=== PATIENT | male | born 1985 | race Caucasian/White ===

== ENCOUNTER 2016-11-02 19:11 | Emergency (ER) | payer OTHER ==
[2016-11-02 19:58] VITALS: BP 126/70
[2016-11-02] MEDS ORDERED: Tetan/Diph/Pertus SYR(Tdap)* 0.5 ML SYR(BOOSTRIX) use SYR IM ONE (20:42)
--- NOTE | 2016-11-02 20:52 | UC ---
Laceration HPI - HPI Summary HPI Summary: This is an otherwise healthy 30 yo gentleman who presented after sustaining a laceration to his L index finger. Injury occurred ~1 hr prior to evaluation. He was camping with his family and was using a knife. He lacerated the end of his L index finger. Last tetanus 2012. No associated weakness or numbness in the finger. - History Of Current Complaint Chief Complaint: UCLaceration Stated Complaint: LEFT INDEX FINGER LAC Time Seen by Provider: 11/02/16 20:33 - Allergies/Home Medications Allergies/Adverse Reactions: Allergies Allergy/AdvReac Type Severity Reaction Status Date / Time No Known Allergies Allergy Verified 11/02/16 19:58 PMH/Surg Hx/FS Hx/Imm Hx Previously Healthy: Yes - Surgical History Surgical History: Yes Surgery Procedure, Year, and Place: HERNIA REPAIR. RIGHT KNEE SX--11/2015 - Family History Known Family History: Positive: None - Social History Alcohol Use: Weekly Substance Use Type: None Smoking Status (MU): Never Smoked Tobacco Review of Systems Constitutional: Negative Skin: Other - laceration Eyes: Negative ENT: Negative Respiratory: Negative Cardiovascular: Negative Gastrointestinal: Negative Genitourinary: Negative Motor: Negative Neurovascular: Negative Musculoskeletal: Negative Neurological: Negative Psychological: Negative All Other Systems Reviewed And Are Negative: Yes Physical Exam Triage Information Reviewed: Yes Appearance: Well-Appearing Vital Signs: Initial Vital Signs Temp 98.9 F 11/02/16 19:52 Pulse 63 11/02/16 19:52 Resp 20 11/02/16 19:52 BP 126/70 11/02/16 19:52 Pulse Ox 99 11/02/16 19:52 Vital Signs Reviewed: Yes Respiratory: Positive: Chest non-tender, Lungs clear. Negative: Crackles, Rhonchi, Stridor, Wheezing Cardiovascular: Positive: RRR, No Murmur Skin: Positive: Other - avulsion of the very tip of the L 2nd finger, sensation and strength intact Laceration Repair - Laceration Repair 1 Description: Linear : No Repair Necessary Laceration Size After Repair: Length (cm) - 1.5 cm, Width (mm) - 10mm Laceration Course/Dx - Course/Dx Course Of Treatment: This is an otherwise healthy young gentleman who sustained an avulsion injury to his L 2nd finger while using an knife earlier today. No neuro or tendon involvement. Wound throughly cleansed and hemostasis achieved with a pressure dressing - Differential Dx - Laceration/Wound Differental Diagnoses: Avulsion, Fracture, Tendon Laceration Provider Diagnoses: 1. Finger avulsion without bony or involvement - L index finger Discharge - Discharge Plan Condition: Stable Disposition: HOME Patient Education Materials: Finger Laceration (ED) Referrals: Jean Lugo MD [Primary Care Provider] - Additional Instructions: Activity: Avoid re-injuring finger Instructions: 1. Keep wound clean and dry, change dressing daily and apply antibiotic ointment 2. Place finger cage over finger while working 3. Watch for signs of infection
== END 2016-11-02 20:58 | disposition home or self-care (01) ==
LOC: UCCORT 19:11
DX: S61.201A Unspecified open wound of left index finger without damage to nail, initial encounter (principal); W26.0XXA Contact with knife, initial encounter; Y93.89 Activity, other specified; Y92.9 Unspecified place or not applicable; Y99.9 Unspecified external cause status
CPT/HCPCS: 90471; 90715; 99213; G0463

== ENCOUNTER 2017-03-31 13:25 | Emergency (ER) | payer OTHER ==
[2017-03-31 14:08] VITALS: BP 122/70
--- NOTE | 2017-03-31 14:32 | UC ---
Back Pain HPI - HPI Summary HPI Summary: 31 year old male presents with complains of lower back pain. - History of Current Complaint Chief Complaint: UCBackPain Stated Complaint: LOW BACK PAIN Time Seen by Provider: 03/31/17 14:32 Hx Obtained From: Patient Severity Initially: Moderate Severity Currently: Moderate Pain Scale Used: 0-10 Numeric - 5 - Allergies/Home Medications Allergies/Adverse Reactions: Allergies Allergy/AdvReac Type Severity Reaction Status Date / Time No Known Allergies Allergy Verified 03/31/17 14:08 Home Medications: Home Medications Acetaminophen [Acetaminophen Extra Stren] 500 mg PO DAILY PRN 03/31/17 [History Confirmed 03/31/17] PMH/Surg Hx/FS Hx/Imm Hx Previously Healthy: Yes - Surgical History Surgical History: Yes Surgery Procedure, Year, and Place: HERNIA REPAIR. RIGHT KNEE SX--11/2015 - Family History Known Family History: Positive: None - Social History Alcohol Use: Weekly Substance Use Type: None Smoking Status (MU): Never Smoked Tobacco Review of Systems Constitutional: Negative Skin: Negative Eyes: Negative ENT: Negative Respiratory: Negative Cardiovascular: Negative Gastrointestinal: Negative Genitourinary: Negative Motor: Negative Neurovascular: Negative Musculoskeletal: Decreased ROM, Myalgia, Other: - lower back pain Neurological: Negative Psychological: Negative All Other Systems Reviewed And Are Negative: Yes Physical Exam Triage Information Reviewed: Yes Vital Signs: Initial Vital Signs Temp 37.2 C 03/31/17 14:04 Pulse 75 03/31/17 14:04 Resp 16 03/31/17 14:04 BP 122/70 03/31/17 14:04 Pulse Ox 100 03/31/17 14:04 Vital Signs Reviewed: Yes Eye Exam: Normal ENT Exam: Normal Dental Exam: Normal Neck exam: Normal Neck: Positive: 1 Respiratory Exam: Normal Cardiovascular Exam: Normal Abdominal Exam: Normal Musculoskeletal: Positive: Other: - lower back pain Neurological Exam: Normal Psychological Exam: Normal Skin Exam: Normal Back Pain Course/Dx - Differential Dx/Diagnosis Provider Diagnoses: lower back pain/strain Discharge - Discharge Plan Condition: Stable Disposition: HOME Prescriptions: Meloxicam(NF) [Mobic(NF)] 7.5 mg PO BID #30 tab Methocarbamol TAB* [Robaxin 500 MG TAB*] 500 mg PO TID PRN #30 tab PRN Reason: Spasms - Back Methylprednisolone [Medrol Dosepak 4 MG*] 4 mg PO .SEE ANIVAL INSTRUCTION #21 tab Patient Education Materials: Low Back Strain (ED), Acute Low Back Pain (ED) Referrals: Ja Arnett [Physical Therapist] - Jean Lugo MD [Primary Care Provider] -
== END 2017-03-31 15:08 | disposition home or self-care (01) ==
LOC: UCCORT 13:25
DX: S39.012A Strain of muscle, fascia and tendon of lower back, initial encounter (principal); X58.XXXA Exposure to other specified factors, initial encounter; M54.5 Low back pain; Y92.9 Unspecified place or not applicable
CPT/HCPCS: 81003; 87502; 99212; G0463

== ENCOUNTER 2017-06-15 15:07 | Emergency (ER) | payer OTHER ==
[2017-06-15 18:24] VITALS: BP 125/82
--- NOTE | 2017-06-15 19:17 | UC ---
FLU HPI - HPI Summary HPI Summary: 31 y/o male presents to the urgent care c/o dry cough, body aches, chills, headache, sinus congestion, runny nose w/ clear d/c for the past 2 day. Pt has taken OTC medications to alleviate symptoms. pt denies SOB,chest pain abdominal pain, N/V/D - History of Current Complaint Hx Obtained From: Patient Onset/Duration: Gradual Onset, Lasting Days - 2 days, Still Present, Worse Since - today Severity Currently: Mild Severity Initially: Moderate Pain Intensity: 7 Pain Scale Used: 0-10 Numeric Associated Signs & Symptoms: Positive: Fever, Myalgia, Cough, Sore Throat, Nasal Congestion, Headache - Risk Factors Influenza Risk Factors: Negative <Radha Reynolds - Last Filed: 06/16/17 14:35> <Margy Dillon - Last Filed: 06/17/17 13:08> - History of Current Complaint Chief Complaint: UCGeneralIllness Stated Complaint: ST,ACHY Time Seen by Provider: 06/15/17 18:49 - Allergy/Home Medications Allergies/Adverse Reactions: Allergies Allergy/AdvReac Type Severity Reaction Status Date / Time No Known Allergies Allergy Verified 06/15/17 18:24 PMH/Surg Hx/FS Hx/Imm Hx Previously Healthy: Yes Respiratory History: Asthma - Surgical History Surgical History: Yes Surgery Procedure, Year, and Place: HERNIA REPAIR. RIGHT KNEE SX--11/2015 - Family History Known Family History: Positive: None - Pt denies FMHX - Social History Occupation: Employed Full-time Lives: With Family Alcohol Use: Weekly Alcohol Amount: once Substance Use Type: None Smoking Status (MU): Never Smoked Tobacco <Radha Reynolds - Last Filed: 06/16/17 14:35> Review of Systems Constitutional: Fever, Chills, Fatigue, Other - body aches Skin: Negative Eyes: Negative ENT: Sore Throat, Nasal Discharge, Sinus Congestion Respiratory: Cough Cardiovascular: Negative Gastrointestinal: Negative Genitourinary: Negative Motor: Negative Neurovascular: Negative Musculoskeletal: Negative Neurological: Negative Psychological: Negative Is Patient Immunocompromised?: No All Other Systems Reviewed And Are Negative: Yes <Radha Reynolds - Last Filed: 06/16/17 14:35> Physical Exam Triage Information Reviewed: Yes Vital Signs: Initial Vital Signs Temp 97.6 F 06/15/17 18:19 Pulse 58 06/15/17 18:19 Resp 16 06/15/17 18:19 BP 125/82 06/15/17 18:19 Pulse Ox 99 06/15/17 18:19 - Additional Comments VITAL SIGNS: Reviewed. GENERAL: Patient is a well developed and nourished male who is sitting comfortable in the examining table. Patient is not in any acute respiratory distress. HEAD AND FACE: No signs of trauma. No ecchymosis, hematomas or skull depressions. No sinus tenderness. edematous erythematous nasal mucosa with yellowish discharge, EYES: PERRLA, EOMI x 2, No injected conjunctiva, clear watery eyes, no nystagmus. No photophobia. EARS: Hearing grossly intact. Ear canals and tympanic membranes are within normal limits. MOUTH: Positive pharynx with erythema, no exudates,no palatal petechiae. no B/ L tonsillar enlargement Uvula in midline. NECK: Supple, trachea is midline, Positive anterior cervical lymphadenopathy, no JVD, no carotid bruit, no c-spine tenderness, neck with full ROM. No meningeal signs, no Kernig's or brudzinskis signs. CHEST: Symmetric, no tenderness at palpation LUNGS: Clear to auscultation bilaterally. No wheezing or crackles. CVS: Regular rate and rhythm, S1 and S2 present, no murmurs or gallops appreciated. ABDOMEN: Soft, non-tender. No signs of distention. No rebound no guarding, and no masses palpated. Bowel sounds are normal. EXTREMITIES: FROM in all major joints, no edema, no cyanosis or clubbing. NEURO: Alert and oriented x 3. No acute neurological deficits. Speech is normal and follows commands. SKIN: Dry and warm <Radha Reynolds - Last Filed: 06/16/17 14:35> Vital Signs: Initial Vital Signs Temp 97.6 F 06/15/17 18:19 Pulse 58 06/15/17 18:19 Resp 16 06/15/17 18:19 BP 125/82 06/15/17 18:19 Pulse Ox 99 06/15/17 18:19 <Margy Dillon - Last Filed: 02/08/18 13:08> Flu Course/Dx - Course Course Of Treatment: 31 y/o male presents to the urgent care c/o dry cough, body aches, chills, headache, sinus congestion, runny nose w/ clear d/c for the past 2 day. Pt has taken OTC medications to alleviate symptoms. pt denies SOB, chest pain abdominal pain, N/V/D. Hx obtained. Pt with URIon examination.Influenza A&B ordered: result: Influenza A positive.Pt Rx Tamiflu and ibuprofen PO to alleviates symptoms. Advised on hand washing and wear a mask to avoid spreading. Pt advised to rest, increase fluid intake, eat well and avoid strenuous exercise. If symptoms do not improve or worsen advised to return to the urgent care or f/u with her PCP for further evaluation and treatment. Pt understood and agreed with plan of care. - Differential Dx/Diagnosis Differential Diagnosis/HQI/PQRI: Bronchitis, Influenza, Pneumonia, Upper Respiratory Infection Provider Diagnoses: 1- Influenza A. 2- fever <Radha Reynolds - Last Filed: 06/16/17 14:35> Discharge <Radha Reynolds - Last Filed: 06/16/17 14:35> <Margy Dillon - Last Filed: 06/17/17 13:08> - Discharge Plan Condition: Stable Disposition: HOME Prescriptions: Ibuprofen TAB* [Motrin TAB* 800 MG] 800 mg PO Q6H PRN #30 tab PRN Reason: Fever Oseltamivir CAP* [Tamiflu CAP*] 75 mg PO BID #10 cap Patient Education Materials: Influenza (ED) Referrals: [facility] [Outside] - 3 Days Additional Instructions: 1- Please take the full course of the antiviral to avoid resistance. Encourage hand washing and wear a mask to avoid spreading. 2-Please continue taking Ibuprofen PO q6-8hrs prn as instructed after meals to alleviate fever, and sore throat. Increase fluid intake, eat well, rest and avoid strenuous exercise 3-If symptoms do not improve or worsen please return to the urgent care or f/u with your PCP in 2 days for further evaluation and treatment. Attestation Statement User Type: Provider - I was available for consult. This patient was seen by the OBINNA. The patient was not presented to, seen by, or examined by me. Maegan <Margy Dillon - Last Filed: 06/17/17 13:08>
== END 2017-06-15 19:22 | disposition home or self-care (01) ==
LOC: UCCORT 15:07
DX: J11.1 Influenza due to unidentified influenza virus with other respiratory manifestations (principal); R50.9 Fever, unspecified
CPT/HCPCS: 87502; 99212; G0463

== ENCOUNTER 2018-09-10 17:13 | Emergency (ER) | payer OTHER ==
--- OUTSIDE RECORDS SUMMARY | 2018-09-10 17:26 | XMS REPORT | Continuity of Care Document ---
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 Payers Date Identification Numbers Payment Provider Subscriber Effective: 2018 Policy Number: [id number] [facility] Nawaf Shelley V PayID: [id number] [address] [address] [place] [address] Advance Directives Description No Information Available Problems Active Problems Provider Date Infection of skin and/or subcutaneous tissue Onset: 03/14/2013 Raynaud's disease Onset: 03/14/2013 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 Note: appendectomy 07/21/18 Family History Date Family Member(s) Observation Comments Father Hypothyroidism Social History Type Date Description Comments Sex Unknown Marital Status Single Lives With Girlfriend Work Status Currently Working Tobacco Use Start: Unknown Never Smoked Cigarettes ETOH Use Occasionally consumes alcohol 5-6 drinks a week Tobacco Use Start: Unknown Patient has never smoked Smoking Status Reviewed: 08/30/18 Patient has never smoked Allergies, Adverse Reactions, Alerts Description No Known Drug Allergies Medications Active Medications SIG Qnty Indications Ordering Provider Date No Active Medications Unknown 08/11/2018 History Medications Medrol as directed 1units Jean Lugo, 04/22/2011 - 4mg TBPK 02/15/2014 Benadryl Dye-Free 1 qid 12caps Jean Lugo 04/22/2011 - Allergyliquid-Gels 02/15/2014 25mg Capsules Androgel 1 packet daily 30units Jean Lugo 04/22/2011 - 50mg/5GM 02/15/2014 (1%) Gel Fish Oil take 1 capsule by Jean Lugo 04/21/2011 - 500mg mouth 2 times a 02/15/2014 Capsules day Vesicare 1 po qd Jean Lugo, 04/15/2011 - 10mg 02/15/2014 Tablets Axiron 1 act each axilla Jean Lugo, 04/15/2011 - 30mg/Act daily 04/22/2011 Solution Isentress take 1 tablet by Unknown - 400mg mouth twice a day 02/15/2014 Tablets Immunizations CPT Code Status Date Vaccine Lot # [id number] Given 02/15/2014 Influenza Virus 3Yrs & Over 497[address] Given 10/30/2010 Tdap - Tetanus/Diptheria/Acellular Pertussis Vital Signs Date Vital Result Comment 08/30/2018 2:04pm Height 66 inches 5'6" Weight 209.38 lb Heart Rate 76 /min BP Systolic 110 mmHg BP Diastolic 80 mmHg O2 % BldC Oximetry 96 % BMI (Body Mass Index) 33.8 kg/m2 08/11/2018 5:07pm Weight 205.00 lb Heart Rate 68 /min BP Systolic 121 mmHg BP Diastolic 86 mmHg Respiratory Rate 16 /min 02/15/2014 9:05am Height 66.25 inches Weight 205.50 lb Heart Rate 64 /min BP Systolic 102 mmHg BP Diastolic 72 mmHg Respiratory Rate 16 /min Body Temperature 97.5 F BMI (Body Mass Index) 32.9 kg/m2 02/08/2013 1:42pm Weight 192.00 lb BP Systolic 110 mmHg BP Diastolic 70 mmHg Body Temperature 98.0 F 04/22/2011 9:20am Weight 206.50 lb BP Systolic 102 mmHg BP Diastolic 80 mmHg 04/15/2011 5:03pm Weight 208.00 lb BP Systolic 116 mmHg BP Diastolic 72 mmHg Results Test Date Facility Test Result H/L Range Note Laboratory test 01/18/2015 N2N/CCD Import Wound/Misc See Result 1 finding Culture-Gram Below Stain Laboratory test 02/16/2014 N2N/CCD Import Comment See Note 2 finding FSH 2.3 mIU/mL 0.7-10.8 Luteinizing Hormone 4.7 mIU/mL 1.2-10.6 Prolactin 8.1 ng/mL 2.5-17.4 Testosterone,Serum 650 ng/dL 348-1197 Thyroid Stim Hormone 1.92 uIU/mL 0.36-3.74 CBC 02/16/2014 N2N/CCD Import Hematocrit 44.3 % 38-48 Hemoglobin 15.6 gm/dL 12.8-17 Mean Cell Volume 90.8 fl 80-96 Mean Corpuscular HGB 32.0 pg 27-33 Mean Corpuscular HGB Conc 35.2 g/dL 31.7-36 Mean Platelet Volume 10.5 fL 6.6-10.6 Platelet Count 216 K/uL 150-400 Red Blood Count 4.88 M/uL 4.2-5.8 Red Cell Distri Width %CV 13.0 % 11.6-15.8 White Blood Count 4.8 K/uL 3.4-10.5 Comprehensive Metabolic Panel 02/16/2014 N2N/CCD Import Alb/Glob 1.4 ratio Albumin 4.2 g/dL 3.4-5 Alkaline Phosphatase 69 U/L 45-117 Anion Gap 11 mEq/L 8-16 BUN 21 mg/dL High 7-18 BUN/Creat 16.1 ratio Bilirubin,Total 0.7 mg/dL 0.2-1 Calcium 8.7 mg/dL 8.5-10.1 Carbon Dioxide 25 mmol/L 21-32 Chloride 107 mmol/L 98-107 Creatinine 1.3 mg/dL 0.6-1.3 Globulin 3.1 g/dL 1.9-4.3 Glom Filtration Rate, Estimate >60 mL/min Glucose 95 mg/dL 74-106 If >60 mL/min 3 Potassium 3.9 mmol/L 3.5-5.1 SGPT/Alt 29 U/L 12-78 Sgot/Ast 16 U/L 15-37 Sodium 139 mmol/L 136-145 Total Protein 7.3 g/dL 6.4-8.2 LDL Cholesterol Profile 02/16/2014 N2N/CCD Import Cholesterol 164 mg/dL 4 HDL Cholesterol 40 mg/dL 5 LDL-Cholesterol 104 mg/dL 6 Triglycerides 101 mg/dL 7 Wound Culture/Sensi 01/25/2013 N2N/CCD Import Wound/Misc (See Note) 8 Culture-Gram Stain 1 SEE RESULT BELOW Name: NAWAF SHELLEY : [address]: Luis Tucker MD Acct: [id number] Unit: [id number] AGE: 29 Location: [facility] Re01/17/15 SEX: M Status: DEP ER SPEC: [id number] ILSA: 01/18/15-[address]: Elodia Avitia DO REQ: [id number] RECD: 01/18/15-1149 STATUS: KAYLA SANABRIA DR: Luis Lugo MD _ SOURCE: [facility]: ORDERED: Culture Stain Procedure Result Verified Site Wound/Misc Gram Stain Final 01/18/15- 1402 ML 1+ Neutrophils No Organisms Seen Wound/Misc Culture Final 01/20/15- 1149 ML Organism 1 MRSA Quantity 2+ Consistent with previous results. 1. MRSA M.I.C. RX --------- ------ Penicillin >=0.5 R Clindamycin <=0.25 S Erythromycin <=0.25 S Gentamicin <=0.5 S Linezolid 2 S Nitrofurantoin <=16 S Oxacillin >=4 R * Quinupristin/Dalfopristin <=0.25 S Rifampin <=0.5 S Tetracycline <=1 S Doxycycline - Deduced S * Minocycline - Deduced S CONTINUED ON NEXT PAGE * ML=Testing performed at Main Lab DEPARTMENT OF PATHOLOGY, [address] [place] [address] Rommel Robertson M.D. Director [facility] # [id number] Patient: NAWAF SHELLEY [id number] (Continued) Specimen: [id number] Collected: 01/18/15 Received: 01/18/15-1149 (Continued) Procedure Result Verified Site Wound/Misc Culture Final (continued) 01/20/15- 1149 1. MRSA (continued) M.I.C. RX --------- ------ Trimethoprim/Sulfamethoxazole <=10 S Vancomycin <=0.5 S Imipenem-Deduced R * Ampicillin/Sulbactam-Deduced R Cefazolin-Deduced R * These antibiotics are not available in the [facility] Formulary Contact the Microbiology Department for any additional antibiotic reporting. * ML - MAIN LAB ([facility]) . END OF REPORT * ML=Testing performed at Main Lab DEPARTMENT OF PATHOLOGY, [address] [place] [address] Rommel Robertson M.D. Director [facility] # [id number] 2 Adult male reference interval is based on a population of lean males up to 40 years old. Performed at: RN - [facility] [address], [place], [place] [id number] Aluminum Siding Applicator: Martha Mari MD, Phone: [phone] Note: Persistent reduction for 3 months or more in an eGFR <60 mL/min/1.73 m2 defines CKD. Patients with eGFR values >/=60 mL/min/1.73 m2 may also have CKD if evidence of persistent proteinuria is present. The original MDRD equation for estimated GFR is not valid for patients less than 18 years of age. Additional information may be found at www.kdoqi.org. 4 Reference Guidelines*: Desirable: ........... < 200 mg/dL Borderline High: ..... 200-239 mg/dL High: ................ >=240 mg/dL * The National Cholesterol Education Program (NCEP) 5 Reference Guidelines*: Low HDL: ..... < 40 mg/dL Normal: ..... 40-60 mg/dL Desirable: ... > 60 mg/dL *The National Cholesterol Education Program(NCEP) 6 Reference Guidelines*: Optimal:........... <100 mg/dL Near Optimal....... 100-129 mg/dL Borderline High.... 130-159 mg/dL High............... 160-189 mg/dL Very High.......... >=190 mg/dL * Source: National Cholesterol Education Program (NCEP) 7 Reference Guidelines*: Normal: ............. < 150 mg/dL Borderline High: .... 150-199 mg/dL High: ............... 200-499 mg/dL Very High: .......... > 500 mg/dL * Source: National Cholesterol Education Program (NCEP) 8 RUN DATE: 01/27/13 [facility] LAB LIVE PAGE 1 RUN TIME: [address] [place] [address] Specimen Inquiry Name: NAWAF SHELLEY 5TH : [address]: Opal Barrera DO Acct: [id number] Unit: [id number] AGE: 27 [facility] SEX: M Status: REG ER SPEC: [id number] ILSA: 01/25/13-[address]: Joselyn BURCH REQ: [id number] RECD: 01/25/13 STATUS: KAYLA SANABRIA DR: Opal Candelario MD _ SOURCE: THIGH,LEFT SPDESC: ORDERED: Culture Stain Procedure Result Verified Site Wound/Misc Gram Stain Final 01/26/13- 12 ML 1+ Polys 2+ Nucleated Cells 1+ Gram Positive Cocci Wound/Misc Culture Final 01/27/13- 1114 ML Organism 1 MRSA Quantity 3+ 1. MRSA M.I.C. RX --------- ------ Penicillin >=0.5 R Clindamycin <=0.25 S Erythromycin >=8 R Gentamicin <=0.5 S Linezolid 2 S Nitrofurantoin 128 R Oxacillin >=4 R * Quinupristin/Dalfopristin 0.5 S Rifampin <=0.5 S Tetracycline <=1 S Doxycycline - Deduced S * Minocycline - Deduced S Trimethoprim/Sulfamethoxazole <=10 S Vancomycin 1 S Imipenem-Deduced R * Ampicillin/Sulbactam-Deduced R CONTINUED ON NEXT PAGE * ML=Testing performed at Main Lab DEPARTMENT OF PATHOLOGY, [facility] [employer] [place], [place] [address] Rommel Robertson M.D. Director [facility] Permit #[id number] RUN DATE: 01/27/13 [facility] LAB LIVE PAGE 2 RUN TIME: 1114 [facility] [employer] [place], [place] [address] Specimen Inquiry Patient: NAWAF SHELLEY [id number] (Continued) Specimen: [id number] Collected: 01/25/13-1399 Received: 01/25/13-1848 (Continued) Procedure Result Verified Site Wound/Misc Culture Final (continued) 01/27/13- 1114 1. MRSA (continued) M.I.C. RX --------- ------ Cefazolin-Deduced R * These antibiotics are not available in the [facility] Formulary Contact the Microbiology Department for any additional antibiotic reporting. END OF REPORT * ML=Testing performed at Main Lab DEPARTMENT OF PATHOLOGY, [address] [place] [address] Rommel Robertson M.D. 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 Plan of Treatment Future Appointment(s):03/01/2019 2:30 pm - Jean Lugo MD at [facility]08/30/2018 - Jean Lugo, MDZ00.00 Encounter for general adult medical examination without abnoNew Labs:Lipid Profile (Trig/Chol/HDL), Ordered: 08/30/18C7A.020 Malignant carcinoid tumor of the appendixNew Labs:Comp Metabolic Panel, Ordered: 08/30/18Follow up:6 months.R53.83 Other fatigueNew Labs:TSH (Thyroid Stim Horm), Ordered: 08/30/18CBC Auto Diff, Ordered: Testosterone Total, Ordered: 08/30/18Z12.5 Encounter for screening for malignant neoplasm of prostateNew Labs:PSA Screening, Ordered: 08/30/18
--- OUTSIDE RECORDS SUMMARY | 2018-09-10 17:26 | XMS REPORT | Continuity of Care Document ---
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 Unavailable Jean Lugo MD Primary Care Physician Unavailable Payers Date Identification Numbers Payment Provider Subscriber Policy Number: [id number] rick Shelley Group Number: [id number] [address] [address] PayID: [id number] [place] [address] Expires: 2018 Policy Number: [id number] rick Shelley PayID: [id number] [address] [address] [place] [address] Expires: 2018 Policy Number: [id number] [facility] Shelley PayID: [id number] [address] [address] [place] [address] Advance Directives Description No Information Available Problems Active Problems Provider Date Diarrhea 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 MD,FACS Onset: 09/06/2018 Malignant carcinoid tumor of appendix 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 MD, FACS Onset: 2018 Acute appendicitis without peritonitis 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 MD,SANGITA Onset: 2018 Family History Description No Information Available Social History Type Date Description Comments Sex Unknown Marital Status Single Occupation [employer] ETOH Use Occasionally consumes alcohol Tobacco Use Start: Unknown Patient denies history of smoking Allergies, Adverse Reactions, Alerts Description No Known Drug Allergies Medications Active Medications SIG Qnty Indications Ordering Provider Date No Active Medications Unknown 07/29/2018 History Medications Hydrocodone 1 tablet by mouth Unknown - Bitartrate/Acetaminophen every 6 hours as 07/29/2018 5-325mg Tablets needed pain Levofloxacin 1 by mouth every Unknown - 500mg Tablets day 07/29/2018 Immunizations Description No Information Available Vital Signs Date Vital Result Comment 09/06/2018 1:42pm BP Systolic 111 mmHg BP Diastolic 76 mmHg Heart Rate 65 /min Respiratory Rate 17 /min Height 67 inches 5'7" Weight 208.00 lb BMI (Body Mass Index) 32.6 kg/m2 BSA (Body Surface Area) 2.06 m2 [place] body weight in kilograms 67 kg 07/29/2018 9:33am BP Systolic 61 mmHg BP Diastolic 32 mmHg Heart Rate 70 /min Respiratory Rate 17 /min Height 67 inches 5'7" Weight 214.00 lb BMI (Body Mass Index) 33.5 kg/m2 BSA (Body Surface Area) 2.08 m2 [place] body weight in kilograms 67 kg Results Test Date Facility Test Result H/L Range Note 5-[facility],Quant 24 08/14/2018 [facility] 5-[facility]iaa, Urine 1.7 mg/L Undefined 1, 2 HR Urine [address] [place] [address] [phone] 5-[facility], Urine, 24 HR 3.1 mg/24hr 0.0-14.9 3 Laboratory 08/12/2018 [facility] Chromium,Plasma 0.8 ug/L 0.1-2.1 4 test finding [address] [place] [address] [phone] CBC 07/22/2018 [facility] White Blood Count 14.5 High 3.4-10.[address] [place] [address] [phone] Red Blood Count 4.45 M/uL N 4.20-5.80 Hemoglobin 13.7 gm/dL N 12.8-17.0 Hematocrit 40.5 % N 38.0-48.0 Mean Cell Volume 91.0 fl N 80.0-96.0 Mean Corpuscular HGB 30.8 pg N 27.0-33.0 Mean Corpuscular HGB Conc 33.8 g/dL N 31.7-36.0 Platelet Count 235 K/uL N 155-360 Red Cell Distri Width %CV 13.4 % N 11.6-15.8 Mean Platelet Volume 10.2 fL N 6.6-10.6 1 K35.80 2 This test was developed and its performance characteristics determined by [employer]. It has not been cleared or approved by the Food and Drug Administration. 3 Performed at: [address] [id number] Photo Editor: Lori Burch MD, Phone: [phone] 4 This test was developed and its performance characteristics determined by [employer]. It has not been cleared or approved by the Food and Drug Administration. Detection Limit=0.1 Performed at: [facility] [employer] [id number] Photo Editor: Lori Burch MD, Phone: [phone] 5 APPENDICITIS Procedures Description No Information Available Encounters Description No Information Available Plan of Treatment 09/06/2018 - 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 MD,FACSR19.7 Diarrhea, unspecifiedComments:patient had incidental carcinoid tumor within the appendix, completely excised negative margins, 0.5cm.i discussed the options with him and will plan for small bowel follow through and colonoscopy to rule out intraluminal lesion or carcinoid tumor. meanwhile dietary modifications have been discussed with him with regards to his intermittent diarrheal episodes. Risks and benefits of the procedure were discussed with the patient. Risks include, but are not limited to , infection, bleeding, bowel perforation, organ or tissue damage or malfunction , allergy, and potentially . Patient understood andagreed to the procedure.
[2018-09-10 17:47] VITALS: BP 118/78
[2018-09-10] MEDS ORDERED: Lidocaine 1% MPF* 2 ML VIAL INJ ONE (17:53)
--- NOTE | 2018-09-10 18:25 | UC ---
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 - History Of Current Complaint Chief Complaint: UCLaceration Stated Complaint: LEFT HAND/FINGER LACERATION Hx Obtained From: Patient Laceration Location: Finger - left index over mcp Mechanism Of Injury: Sharp Trauma Onset/Duration: Sudden Onset Severity: Mild Pain Intensity: 0 Aggravating Factors: Movement Hands: 1 - 1.5 cm laceration 2 - abrasion 3 - burn Related History: Dominant Hand Right - Allergies/Home Medications Allergies/Adverse Reactions: Allergies Allergy/AdvReac Type Severity Reaction Status Date / Time No Known Allergies Allergy Verified 09/10/18 17:40 PMH/Surg Hx/FS Hx/Imm Hx Previously Healthy: Yes - Surgical History Surgical History: Yes Surgery Procedure, Year, and Place: HERNIA REPAIR; appy 07/21/2018 [facility]. RIGHT KNEE SX--11/2015 - Family History Known Family History: Positive: None - Pt denies FMHX Negative: Hypertension - Social History Occupation: Employed Full-time Lives: With Family Alcohol Use: Weekly Alcohol Amount: 5 Substance Use Type: None Smoking Status (MU): Never Smoked Tobacco - Immunization History Most Recent Tetanus Shot: 2016 Review of Systems All Other Systems Reviewed And Are Negative: Yes Eyes: Positive: Eye Redness - left eye Is Patient Immunocompromised?: No Physical Exam Triage Information Reviewed: Yes Appearance: Well-Appearing, No Pain Distress, Well-Nourished Vital Signs: Initial Vital Signs Temp 98.2 F 09/10/18 17:40 Pulse 66 09/10/18 17:40 Resp 18 09/10/18 17:40 BP 118/78 09/10/18 17:40 Pulse Ox 100 09/10/18 17:40 Vital Signs Reviewed: Yes Eyes: Positive: Conjunctiva Inflamed - OS without perilimbral blush, Other: - left disc sharp. Normal angle on the iris. Neck exam: Normal Respiratory Exam: Normal Cardiovascular Exam: Normal Musculoskeletal Exam: Normal Neurological Exam: Normal Psychological Exam: Normal Skin: Positive: Other - laceration/ abrasion/ burn on image. Laceration Repair - Laceration Repair 1 Description: Linear Laceration Size After Repair: Length (cm) - 1.5 Modified For Repair: No Type Injection: Local Anesthesia Used: 1.0% Lido Cleansing Completed Via Routine Prep: Yes Irrigation With Pressure Irrigation Device: Yes Closure Material: Sutures Closure Method: Single Layer Suture Of: Skin - running suture Suture Type: Nylon - 4-0 nylon # 5 sutures. Laceration Course/Dx - Differential Dx - Laceration/Wound Differental Diagnoses: Abrasion, Avulsion, Laceration - Diagnosis Provider Diagnosis: Laceration of left index finger Discharge - Sign-Out/Discharge Documenting (check all that apply): Patient Departure All imaging exams completed and their final reports reviewed: No Studies - Discharge Plan Condition: Stable Disposition: HOME Patient Education Materials: Care For Your Stitches (ED) Referrals: Jean Lugo MD [Primary Care Provider] - Additional Instructions: follow up suture removal in 12 days. Ok to shower today. Keep covered while working. - Billing Disposition and Condition Condition: STABLE Disposition: Home
== END 2018-09-10 18:40 | disposition home or self-care (01) ==
LOC: UCCORT 17:13
DX: S61.211A Laceration without foreign body of left index finger without damage to nail, initial encounter (principal); W45.8XXA Other foreign body or object entering through skin, initial encounter
CPT/HCPCS: 12001; 99211; G0463

== ENCOUNTER 2019-03-28 17:41 | Emergency (ER) | payer BC, OTHER ==
[2019-03-28 18:06] VITALS: BP 149/83
--- NOTE | 2019-03-28 18:39 | UC ---
FLU HPI - HPI Summary HPI Summary: Pt/co sudden onset of generalized body aches, chills, ST X 1 day. - History of Current Complaint Chief Complaint: UCGeneralIllness Stated Complaint: ACHES,CHILLS,ST,FATIGUE Time Seen by Provider: 03/28/19 18:14 Hx Obtained From: Patient Onset/Duration: Sudden Onset, Lasting Days, Still Present Severity Currently: Mild Severity Initially: Moderate Pain Intensity: 6 Associated Signs & Symptoms: Positive: Myalgia, Sore Throat Related Hx: Possible Flu/Infectious Exposure - Risk Factors Influenza Risk Factors: Negative - Allergy/Home Medications Allergies/Adverse Reactions: Allergies Allergy/AdvReac Type Severity Reaction Status Date / Time No Known Allergies Allergy Verified 03/28/19 18:02 PMH/Surg Hx/FS Hx/Imm Hx Previously Healthy: Yes - Surgical History Surgical History: Yes Surgery Procedure, Year, and Place: HERNIA REPAIR; appy 07/21/2018 [facility]. RIGHT KNEE SX--11/2015 - Family History Known Family History: Positive: None - Pt denies FMHX Negative: Hypertension - Social History Occupation: Employed Full-time Lives: With Family Alcohol Use: Weekly Alcohol Amount: 5 Substance Use Type: None Smoking Status (MU): Never Smoked Tobacco Have You Smoked in the Last Year: No - Immunization History Most Recent Tetanus Shot: 2017 Vaccination Up to Date: Yes Review of Systems All Other Systems Reviewed And Are Negative: Yes Constitutional: Positive: Chills, Fatigue Skin: Positive: Negative Eyes: Positive: Negative ENT: Positive: Sore Throat Respiratory: Positive: Negative Cardiovascular: Positive: Negative Gastrointestinal: Positive: Negative Genitourinary: Positive: Negative Motor: Positive: Negative Neurovascular: Positive: Negative Musculoskeletal: Positive: Myalgia Neurological: Positive: Negative Psychological: Positive: Negative Is Patient Immunocompromised?: No Physical Exam Triage Information Reviewed: Yes Appearance: Ill-Appearing Vital Signs: Initial Vital Signs Temp 98 F 03/28/19 18:03 Pulse 74 03/28/19 18:03 Resp 16 03/28/19 18:03 BP 149/83 03/28/19 18:03 Pulse Ox 100 03/28/19 18:03 Vital Signs Reviewed: Yes Eye Exam: Normal ENT: Positive: Pharyngeal erythema Dental Exam: Normal Neck exam: Normal Respiratory Exam: Normal Cardiovascular Exam: Normal Musculoskeletal Exam: Normal Neurological Exam: Normal Psychological Exam: Normal Skin Exam: Normal Flu Course/Dx - Differential Dx/Diagnosis Differential Diagnosis/HQI/PQRI: Influenza, Upper Respiratory Infection Provider Diagnosis: Myalgia, Viral syndrome Discharge ED - Sign-Out/Discharge Documenting (check all that apply): Patient Departure All imaging exams completed and their final reports reviewed: No Studies - Discharge Plan Condition: Stable Disposition: HOME Patient Education Materials: Viral Syndrome (ED) Referrals: Jean Lugo MD [Primary Care Provider] - If Needed - Billing Disposition and Condition Condition: STABLE Disposition: Home
[2019-03-28 18:47] LABS: Influenza A Molecular NEGATIVE (Negative); Influenza B Molecular NEGATIVE (Negative)
== END 2019-03-28 19:00 | disposition home or self-care (01) ==
LOC: UCCORT 17:41
DX: M79.10 Myalgia, unspecified site (principal); R68.83 Chills (without fever); R53.83 Other fatigue; J02.9 Acute pharyngitis, unspecified
CPT/HCPCS: 87651; 99211; G0463

== ENCOUNTER 2019-05-25 18:42 | Emergency (ER) | payer BC ==
--- OUTSIDE RECORDS SUMMARY | 2019-05-25 19:13 | XMS REPORT | Continuity of Care Document ---
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 MD,FACS Onset: 2018 gangrene Diarrhea 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 MD,FACS Onset: 09/06/2018 Malignant carcinoid tumor of appendix 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 MD,FACS Onset: 2018 Acute appendicitis without peritonitis 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 MD,FACS Onset: 2018 Social History Type Date Description Comments Sex Unknown ETOH Use Occasionally consumes alcohol Tobacco Use Start: Unknown Patient denies history of smoking Allergies, Adverse Reactions, Alerts Description No Known Drug Allergies Medications Description No Active Medications Immunizations Description No Information Available Vital Signs Date Vital Result Comment 03/31/2019 9:35am BP Systolic Sitting Left Arm 123 mmHg BP Diastolic Sitting Left Arm 85 mmHg Heart Rate 59 /min Respiratory Rate 16 /min Height 66 inches 5'6" Weight 221.00 lb BMI (Body Mass Index) 35.7 kg/m2 BSA (Body Surface Area) 2.09 m2 [place] body weight in kilograms 64 kg O2 % BldC Oximetry 98 % ra 09/06/2018 1:42pm BP Systolic 111 mmHg BP Diastolic 76 mmHg Heart Rate 65 /min Respiratory Rate 17 /min Height 67 inches 5'7" Weight 208.00 lb BMI (Body Mass Index) 32.6 kg/m2 BSA (Body Surface Area) 2.06 m2 [place] body weight in kilograms 67 kg Results Description No Information Available Procedures Description No Information Available Medical Devices Description No Information Available Encounters Description No Information Available Assessments Date Code Description Provider 03/31/2019 K43.9 Ventral hernia without obstruction or 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 MD, SANGITA gangrene 03/31/2019 C7A.020 Malignant carcinoid tumor of the appendix 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 MD,FACS Plan of Treatment Future Appointment(s):04/28/2019 9:00 am - 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 MD,SANGITA at [facility]03/31/2019 - 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 MD,SANGITAK43.9 Ventral hernia without obstruction or gangreneComments:small bulge of maximum 1 cm in the supra- umbilical area with deep coughing and valsalva only. not sure if hernia or scar tissue versus softening of the fascia in that region, as a pre-hernia especiallywith the weight lifting that he does. i recommended that he avoids abs workout and straining maybe this will heal by itself. will see him back in 4 -6 weeks.C7A.020 Malignant carcinoid tumor of the appendixComments:still he hasn 't done the small bowel follow through. will send him for that study and will inform him of the results. Functional Status Description No Information Available Mental Status Description No Information Available Referrals Description No Information Available
[2019-05-25 19:18] VITALS: BP 111/74
[2019-05-25 19:28] LABS: Influenza B Molecular POSITIVE (Negative)
[2019-05-25] MEDS ORDERED: Oseltamivir CAP* 75 MG CAP PO ONE ×2 (19:40)
[2019-05-25] MEDS ORDERED: Albuterol HFA INHALER* 8 gm MDI INH ONE (19:41)
--- NOTE | 2019-05-25 19:47 | UC ---
Respiratory Complaint HPI - HPI Summary HPI Summary: 33 yo male with hx of asthma as child presents with 2 day hx cough/wheezing/ fever/chills/shortness of breath and fatigue no diarrhea some nausea no vomiting - History of Current Complaint Chief Complaint: UCGeneralIllness Stated Complaint: COUGH/ACHY/CHILLS Time Seen by Provider: 05/25/19 19:19 Hx Obtained From: Patient Onset/Duration: Gradual Onset Timing: Constant Severity Initially: Mild Severity Currently: Moderate Pain Intensity: 6 Pain Scale Used: 0-10 Numeric Character: Cough: Nonproductive Aggravating Factors: Nothing Alleviating Factors: Nothing Associated Signs And Symptoms: Positive: Fever, Chills, Wheezing, Nasal Congestion, Sinus Discomfort - Allergies/Home Medications Allergies/Adverse Reactions: Allergies Allergy/AdvReac Type Severity Reaction Status Date / Time No Known Allergies Allergy Verified 05/25/19 19:13 Home Medications: Home Medications Phenylephrine/Dm/Acetaminop/GG [Cold-Flu Severe Caplet] 1 dose PO ONCE 05/25/19 [History Confirmed 05/25/19] PMH/Surg Hx/FS Hx/Imm Hx Previously Healthy: Yes Respiratory History: Asthma - Surgical History Surgical History: Yes Surgery Procedure, Year, and Place: HERNIA REPAIR. appy 07/21/2018 [facility]. RIGHT KNEE SX--11/2015 - Family History Known Family History: Positive: None - Pt denies FMHX Negative: Hypertension - Social History Alcohol Use: Weekly Alcohol Amount: 5 Substance Use Type: None Smoking Status (MU): Never Smoked Tobacco Have You Smoked in the Last Year: No - Immunization History Most Recent Tetanus Shot: 2017 Vaccination Up to Date: Yes Review of Systems All Other Systems Reviewed And Are Negative: Yes Constitutional: Positive: Fever, Chills, Fatigue Skin: Positive: Negative Eyes: Positive: Negative ENT: Positive: Nasal Discharge, Sinus Congestion, Sinus Pain/Tenderness Respiratory: Positive: Shortness Of Breath, Cough Gastrointestinal: Positive: Negative Genitourinary: Positive: Negative Motor: Positive: Negative Neurovascular: Positive: Negative Musculoskeletal: Positive: Myalgia Neurological: Positive: Headache Psychological: Positive: Negative Physical Exam Triage Information Reviewed: Yes Appearance: Well-Appearing, No Pain Distress, Well-Nourished Vital Signs: Initial Vital Signs Temp 98.7 F 05/25/19 19:14 Pulse 87 05/25/19 19:14 Resp 16 05/25/19 19:14 BP 111/74 05/25/19 19:14 Pulse Ox 98 05/25/19 19:14 Vital Signs Reviewed: Yes Eyes: Positive: Conjunctiva Clear ENT: Positive: Hearing grossly normal, Pharyngeal erythema, Nasal congestion, Nasal drainage, TMs normal, Uvula midline. Negative: Tonsillar swelling, Tonsillar exudate, Trismus, Hoarse voice, Dental tenderness, Sinus tenderness Neck: Positive: Supple, Nontender, No Lymphadenopathy Respiratory: Positive: No respiratory distress, No accessory muscle use, Wheezing Cardiovascular: Positive: RRR Abdomen Description: Positive: Nontender, No Organomegaly. Negative: CVA Tenderness (R), CVA Tenderness (L) Bowel Sounds: Positive: Present Musculoskeletal: Positive: ROM Intact, No Edema Neurological: Positive: Alert Psychological Exam: Normal Skin Exam: Normal Diagnostics - Laboratory Lab Results: influenza B + Respiratory Course/Dx - Differential Dx/Diagnosis Provider Diagnosis: Influenza B, Influenzal bronchitis Discharge ED - Sign-Out/Discharge Documenting (check all that apply): Patient Departure All imaging exams completed and their final reports reviewed: No Studies - Discharge Plan Condition: Stable Disposition: HOME Prescriptions: Oseltamivir CAP* [Tamiflu CAP*] 75 mg PO BID #8 cap predniSONE 20 mg TAB [Deltasone 20 MG TAB*] 40 mg PO DAILY #8 tab Patient Education Materials: Influenza (ED), How to Use a Metered-Dose Inhaler and a Spacer (ED) Referrals: Jean Lugo MD [Primary Care Provider] - Additional Instructions: use inhaler as directed no work until fever free x 24 hours recheck for worsening symptoms rest fluids tylenol - Billing Disposition and Condition Condition: STABLE Disposition: Home
== END 2019-05-25 20:00 | disposition home or self-care (01) ==
LOC: UCCORT 18:42
DX: J10.1 Influenza due to other identified influenza virus with other respiratory manifestations (principal); J45.909 Unspecified asthma, uncomplicated
CPT/HCPCS: 99213; A9270-GY; G0463; J7512